=== PATIENT | male | born 1990 | race Caucasian/White ===

== ENCOUNTER → 2016-12-11 | Outpatient (REF) ==
--- NOTE | 2016-12-11 14:41 | REP ---
Lumbar spine five views: There is mild scoliosis convex right at the thoracolumbar junction. Vertebral body heights, interspacing alignment are normal. There is endplate irregularity along the inferior endplate of L2 compatible with an anterior Schmorl's node. There is no spondylolysis or spondylolisthesis. The pedicles, facets and sacroiliac articulations are. Impression: Essentially negative lumbar spine except for an anterior Schmorl's node in the inferior endplate of L2. Signed by Anthony Watson MD 12/11/2016 02:33 P
--- NOTE | 2016-12-11 14:43 | REP ---
Right shoulder three views : There is no fracture or dislocation. Mineralization and joint spaces are normal. There are no calcifications or foreign bodies. Impression: Negative right shoulder . Signed by Anthony Watson MD 12/11/2016 02:33 P
== END ==
LOC: M RAD 11:27
PROVIDERS: ATTEND Internal Medicine
DX: M25.511 Pain in right shoulder (principal); M54.5 Low back pain

== ENCOUNTER 2018-03-28 16:03 | Emergency (ER) | payer OTHER ==
[~2018-03-28] VITALS: Ht 175.3 cm; Wt 82.7 kg
[2018-03-28] MEDS ORDERED: QUET1TAB8 PO (16:09)
[2018-03-28] MEDS ORDERED: LITH300C PO (16:09)
[2018-03-28] MEDS ORDERED: KETO10TAB PO (17:49)
[2018-03-28 17:57] VITALS: BP 136/60
[2018-03-28] MEDS ORDERED: KETOROLAC TROMETHAMINE 10 MG TAB PO ONE (18:00)
--- NOTE | 2018-03-29 09:01 | REP ---
RIGHT FOOT, FOUR VIEWS: There is no evidence of an acute fracture, dislocation or intrinsic bone disease. IMPRESSION: No fracture or dislocation. Electronically Signed by Anthony Calderón MD 03/29/2018 06:46 P
== END 2018-03-28 18:04 | disposition home or self-care (01) ==
LOC: M ED 16:03
DX: M77.9 Enthesopathy, unspecified (principal); J45.909 Unspecified asthma, uncomplicated; F31.9 Bipolar disorder, unspecified; R51 Headache; Z79.899 Other long term (current) drug therapy

== ENCOUNTER → 2018-04-15 | Outpatient (REF) ==
[~2018-04-15] MED LIST: KETO10TAB PO; LITH300C PO; QUET1TAB8 PO
--- NOTE | 2018-04-15 14:51 | REP ---
Clinical: Right shoulder pain . Technique: Internal rotation, external rotation, and Y view right shoulder . Findings: No acute fracture or dislocation. The acromioclavicular and glenohumeral joints are intact. No periarticular calcifications or degenerative changes are appreciated. Sub acromial space is normal. Surrounding soft tissues are unremarkable. Impression: Normal right shoulder radiographs. Electronically Signed by Roland Cook MD 04/15/2018 02:43 P
== END ==
LOC: M SMT 14:23
PROVIDERS: ATTEND Internal Medicine
DX: Z02.89 Encounter for other administrative examinations (principal)

== ENCOUNTER 2018-09-04 06:41 | Emergency (ER) | payer OTHER ==
[~2018-09-04] VITALS: Ht 175.3 cm; Wt 81.8 kg
[2018-09-04] MEDS ORDERED: AUGM875T28 PO (08:06)
[2018-09-04 08:21] VITALS: BP 135/85
== END 2018-09-04 08:23 | disposition home or self-care (01) ==
LOC: M ED 06:41
DX: J32.0 Chronic maxillary sinusitis (principal); Z79.899 Other long term (current) drug therapy

== ENCOUNTER 2023-08-01 06:49 | Inpatient (IN) | payer OTHER ==
[~2023-08-01] VITALS: Ht 170.2 cm; Wt 78.7 kg
[~2023-08-01 06:49] MED LIST changes: +AUGM875T28 PO; +QUET100T2 PO; -QUET1TAB8 PO
[2023-08-01] MEDS ORDERED: NAPR220C14 PO (06:57)
[2023-08-01] MEDS: NS 1,000 ML IV ONE ×2 (07:49→16:42)
[2023-08-01] MEDS: ACETAMINOPHEN 500 MG TAB PO ONE (07:49)
[2023-08-01 08:12] LABS: HEMATOCRIT 43.6 % (42.0-52.0); HEMOGLOBIN 14.8 g/dl (13.5-17.5); MEAN CORPUSCULAR HEMOGLOBIN 30.5 pg (27.0-33.0); MEAN CORPUSCULAR HGB CONC 33.9 g/dl (32.0-36.5); MEAN CORPUSCULAR VOLUME 89.7 fl (80.0-96.0); RED BLOOD COUNT 4.86 10^6/uL (4.30-6.10); WHITE BLOOD COUNT 4.5 10^3/uL (4.0-10.0)
[2023-08-01 08:15] LABS: PLATELET COUNT, AUTOMATED 99 10^3/uL (150-450)
[2023-08-01] MEDS: cefTRIAXone SOD 2 GM in D5W MINI-BAG PLUS 50 ML IV ONE (08:26)
[2023-08-01 08:34] LABS: LIPASE 55 U/L (12-53)
[2023-08-01 08:36] LABS: ALBUMIN 3.7 G/DL (3.2-5.2); ALKALINE PHOSPHATASE 67 U/L (46-116); ALT/SGPT 31 U/L (7.0-40); AST/SGOT 35 U/L (<34); BILIRUBIN,DIRECT 0.4 MG/DL (<0.4); BILIRUBIN,TOTAL 1.5 MG/DL (0.3-1.2); BLOOD UREA NITROGEN 14 MG/DL (9-23); CARBON DIOXIDE LEVEL 30 MMOL/L (20-31); CHLORIDE LEVEL 102 MMOL/L (98-107); CREATININE FOR GFR 0.91 MG/DL (0.70-1.30); GLOMERULAR FILTRATION RATE > 60.0 (>60); GLUCOSE, FASTING 101 MG/DL (60-100); POTASSIUM SERUM 3.7 MMOL/L (3.5-5.1); SODIUM LEVEL 137 MMOL/L (136-145); TOTAL PROTEIN 6.6 G/DL (5.7-8.2)
[2023-08-01] MEDS ORDERED: ISOVUE-370 76% 100ML VIAL As Ordered ONE (08:40)
[2023-08-01 08:53] LABS: Trichomonas vaginalis (AMP) NOT DETECTED (NEGATIVE)
[2023-08-01 09:17] LABS: GC DNA AMPLIFICATION NEGATIVE (NEGATIVE)
[2023-08-01 09:50] LABS: ETHYL ALCOHOL (ETHANOL) < 0.003 % (0.000-0.010)
[2023-08-01 09:54] LABS: ATYPICAL LYMPH 4 % (0-5); LYMPHOCYTES 6 % (16-44); METAMYELOCYTES 2 % (0-0); MONOCYTES 10 % (0-5); NEUTROPHILS 38 % (28-66); PLATELET ESTIMATE DECREASED (NORMAL)
[2023-08-01 10:07] LABS: HEPATITIS B SURFACE ANTIGEN NEGATIVE (NEGATIVE)
[2023-08-01 10:20] LABS: HIV 1&2 SCREEN NEGATIVE (NEGATIVE)
[2023-08-01 10:27] LABS: HEPATITIS B CORE ANTIBODY IGM NEGATIVE (NEGATIVE); HEPATITIS C VIRUS ABY INDEX < 0.02 INDEX (<0.8)
[2023-08-01 10:28] LABS: MONO REFLEX EBV COMP NEGATIVE (NEGATIVE)
[2023-08-01 11:14] LABS: PROCALCITONIN 0.44 ng/ml
[2023-08-01] MEDS ORDERED: HOME MED LIST COMPLETE! XX SCH (12:55)
[2023-08-01] MEDS ORDERED: ACETAMINOPHEN TAB 650MG DOSE (2X325MG) PO PRN (14:30)
[2023-08-01 16:05] VITALS: BP 116/72; TEMP 97.5; O2SAT 95
[2023-08-01] MEDS: DOXYCYCLINE HYCLATE 100MG TABLET PO SCH (20:07)
[2023-08-01 20:09] VITALS: BP 117/63; TEMP 97.7; O2SAT 96
[2023-08-02 04:29] VITALS: BP 115/63; TEMP 98.1; O2SAT 100
[2023-08-02 06:31] LABS: HEMATOCRIT 40.4 % (42.0-52.0); HEMOGLOBIN 13.5 g/dl (13.5-17.5); MEAN CORPUSCULAR HEMOGLOBIN 30.3 pg (27.0-33.0); MEAN CORPUSCULAR HGB CONC 33.4 g/dl (32.0-36.5); MEAN CORPUSCULAR VOLUME 90.6 fl (80.0-96.0); RED BLOOD COUNT 4.46 10^6/uL (4.30-6.10); WHITE BLOOD COUNT 2.7 10^3/uL (4.0-10.0)
[2023-08-02 06:35] LABS: PLATELET COUNT, AUTOMATED 88 10^3/uL (150-450)
[2023-08-02 06:52] LABS: BLOOD UREA NITROGEN 13 MG/DL (9-23); CALCIUM LEVEL 8.8 MG/DL (8.5-10.1); CARBON DIOXIDE LEVEL 28 MMOL/L (20-31); CHLORIDE LEVEL 110 MMOL/L (98-107); CREATININE FOR GFR 0.94 MG/DL (0.70-1.30); GLOMERULAR FILTRATION RATE > 60.0 (>60); GLUCOSE, FASTING 99 MG/DL (60-100); POTASSIUM SERUM 4.6 MMOL/L (3.5-5.1); SODIUM LEVEL 142 MMOL/L (136-145)
[2023-08-02 07:06] LABS: ATYPICAL LYMPH 3 % (0-5); BASOPHILS 2 % (0-1); EOSINOPHILS 2 % (0-3); LYMPHOCYTES 57 % (16-44); MONOCYTES 8 % (0-5); NEUTROPHILS 22 % (28-66); PLASMA CELL 1 % (0-0)
[2023-08-02 07:07] LABS: PLATELET ESTIMATE DECREASED (NORMAL); SMUDGE CELLS 1+
[2023-08-02 12:02] VITALS: BP 115/64; TEMP 97.2; O2SAT 99
[2023-08-02 12:48] LABS: ALBUMIN 3.2 G/DL (3.2-5.2); ALKALINE PHOSPHATASE 53 U/L (46-116); ALT/SGPT 27 U/L (7.0-40); AST/SGOT 24 U/L (<34); BILIRUBIN,DIRECT 0.3 MG/DL (<0.4); BILIRUBIN,TOTAL 0.9 MG/DL (0.3-1.2); TOTAL PROTEIN 5.8 G/DL (5.7-8.2)
[2023-08-03] MEDS ORDERED: DOXY-440 PO (06:58)
[2023-08-04 14:07] LABS: EBV VIRAL CAPSID AG IGM < 36.00 U/mL (<36.00)
[2023-08-05 01:52] LABS: BABESIA MICROTI PCR Not Detected (Not Detected)
== END 2023-08-02 18:52 | disposition left against medical advice (07) | DRG 872 ==
LOC: M ED 06:49 → M ED INP 14:26 → M MSPAV 16:00 → OBSVTOIN 08-02 18:15
PROVIDERS: ADMIT Internal Medicine Nephrology; ATTEND Internal Medicine
DX: A41.9 Sepsis, unspecified organism (principal); A69.20 Lyme disease, unspecified; D69.6 Thrombocytopenia, unspecified; K76.89 Other specified diseases of liver; Z11.52 Encounter for screening for COVID-19